=== PATIENT | male | born 1960 | race Caucasian/White ===

== ENCOUNTER 2019-02-11 16:04 | Emergency (ER) | payer OTHER ==
[2019-02-11] MEDS ORDERED: Lidocaine 1% 10 ML MDV ONE (16:50)
--- NOTE | 2019-02-11 17:17 | EDM.PDOC ---
ED HPI GENERAL MEDICAL PROBLEM - General Chief Complaint: General Stated Complaint: fish hook to chin Time Seen by Provider: 02/11/19 16:30 Source of Information: Reports: Patient, RN History Limitations: Reports: No Limitations - History of Present Illness INITIAL COMMENTS - FREE TEXT/NARRATIVE: 58 yr male presents with fish hook to chin. States he was fishing with family and he got the hook to chin from 10 yr old relative. States fishing [place]. Doesn't remember when last tetanus was. States NKA. - Related Data Allergies Allergy/AdvReac Type Severity Reaction Status Date / Time No Known Allergies Allergy Verified 02/11/19 16:24 Home Meds: Home Meds Atenolol 25 mg PO DAILY 02/11/19 [History] Levothyroxine Sodium [Synthroid] 300 mcg PO DAILY 02/11/19 [History] Lisinopril 10 mg PO DAILY 02/11/19 [History] sitaGLIPtin Phos/Metformin HCl [Janumet Xr 50-1,000 mg Tablet] 1 each PO BID 06/22 [History] ED ROS GENERAL - Review of Systems Review Of Systems: See Below Constitutional: Reports: No Symptoms Respiratory: Reports: No Symptoms Cardiovascular: Reports: No Symptoms Skin: Reports: Other (fish hook to chin, deeply embedded and about all the way through the skin) Neurological: Reports: No Symptoms Psychiatric: Reports: No Symptoms ED EXAM, GENERAL - Physical Exam Exam: See Below Exam Limited By: No Limitations General Appearance: Alert, No Apparent Distress Ears: Hearing Grossly Normal Nose: Normal Inspection Throat/Mouth: Normal Voice, No Airway Compromise Head: Atraumatic, Normocephalic Neck: Supple, Non-Tender, Full Range of Motion Respiratory/Chest: No Respiratory Distress, Normal Breath Sounds Cardiovascular: Regular Rate, Rhythm Neurological: Alert, Oriented, Normal Cognition Psychiatric: Normal Affect, Normal Mood Skin Exam: Warm, Dry, Other (fish hook embedded to middle of chin, end of hook is clipped off with about 1 inch protruding from chin.) Course - Re-Assessments/Exams Free Text/Narrative Re-Assessment/Exam: 02/11/19 17:[address] Winston of fishhook to chin. Dr Winston numbed area with Lidocaine 1%. Fish hook removed with use of 18 G needle following fish hook to relieve the barbed hook in the skin. Pt tolerated well and states good relief with Lidocaine. Pressure applied to area to stop bleeding. Good return of blood noted following procedure. Tetanus IM given. Area cleansed, antibiotic oint applied and bandaide per staff. Monitor for any signs of infection. RTC or notify provider if signs of infection noted. Clean area daily to bid. Departure - Departure Time of Disposition: 17:09 Disposition: Home, Self-Care 01 Condition: Good Clinical Impression: Puncture wound - Discharge Information *PRESCRIPTION DRUG MONITORING PROGRAM REVIEWED*: Not Applicable *COPY OF PRESCRIPTION DRUG MONITORING REPORT IN PATIENT UNRULY: Not Applicable Referrals: PCP,None [Primary Care Provider] - Forms: ED Department Discharge - Assessment/Plan Plan: Notified Dr Winston of fishhook to [facility]. Dr Winston numbed area with Lidocaine 1%. Fish hook removed with use of 18 G needle following fish hook to relieve the barbed hook in the skin. Pt tolerated well and states good relief with Lidocaine. Pressure applied to area to stop bleeding. Good return of blood noted following procedure. Tetanus IM given. Area cleansed, antibiotic oint applied and bandaide per staff. Monitor for any signs of infection. RTC or notify provider if signs of infection noted. Clean area daily to bid.
[2019-02-11] MEDS ORDERED: Diphtheria,Pertussis(Acell),Tetanus Vaccine 0.5 ML SDV inactive IM ONE (17:18)
== END 2019-02-11 17:09 | disposition home or self-care (01) ==
LOC: LB.ED 16:04
DX: S01.84XA Puncture wound with foreign body of other part of head, initial encounter (principal); Z23 Encounter for immunization; W45.8XXA Other foreign body or object entering through skin, initial encounter; Z79.899 Other long term (current) drug therapy
CPT/HCPCS: 90471; 90715; 99282; J2001